=== PATIENT | male | born 1960 | race Caucasian/White ===

== ENCOUNTER 2022-04-29 22:38 | Emergency (ER) | payer OTHER ==
[2022-04-29 22:46] VITALS: TEMP 98.9
[2022-04-29] MEDS ORDERED: ONDANSETRON 4 MG/2 ML VIAL IVP STA (23:03)
[2022-04-29] MEDS ORDERED: MORPHINE SULFATE 4 MG/ML SYRINGE IV STA (23:03)
--- NOTE | 2022-04-29 23:38 | XR ---
EXAMINATION TYPE: XR lumbar spine 2 or 3V DATE OF EXAM: 04/29/2022 COMPARISON: NONE HISTORY: Back pain TECHNIQUE: 3 views FINDINGS: The lumbar vertebrae have normal alignment. Posterior elements are intact. No compression f racture. There is mild spurring of the endplates. There is vacuum disc at L4-5. Sacroiliac joints are intact. IMPRESSION: Spondylotic changes. No fracture.
--- NOTE | 2022-04-29 23:39 | ED ---
Fall HPI - General Chief Complaint: Fall Stated Complaint: Fall, LT hip pain Time Seen by Provider: 04/29/22 22:50 Source: EMS Mode of arrival: EMS - History of Present Illness Initial Comments: Patient states he tripped and fell and struck his left hip. Patient complaining of pain to the left hip and groin area. Patient states that this seems to affect the groin muscles on the inner aspect of his left thigh as well. This was a mechanical trip and fall. Patient denies any head or neck injury. Patient is not on blood thinners. Patient denies any distal paresthesias. No significant back pain. Patient states pain is sharp, exacerbated by movement. Patient states he is able to walk with pain. No headache, no fever or chills, no changes in vision or hearing, no sore throat or difficulty with speech, no neck pain, no chest pain or shortness of breath, no abdominal pain, no nausea or vomiting, no changes in urination or bowel movements, no numbness or tingling, no skin rashes or lesions. MD Complaint: fall - Related Data Previous Rx's Medication Instructions Recorded Cyclobenzaprine [Flexeril] 10 mg PO TID PRN #20 tab 04/30/22 Naproxen [Naprosyn] 375 mg PO Q12HR PRN #20 tablet 04/30/22 Allergies Allergy/AdvReac Type Severity Reaction Status Date / Time hydroxyzine [From Vistaril] AdvReac Rash/Hives Verified 04/30/22 00:26 Review of Systems ROS Statement: Those systems with pertinent positive or pertinent negative responses have been documented in the HPI. ROS Other: All systems not noted in ROS Statement are negative. Past Medical History Past Medical History: Neurologic Disorder History of Any Multi-Drug Resistant Organisms: None Reported Past Surgical History: Appendectomy, Back Surgery Additional Past Surgical History / Comment(s): colon repair Past Psychological History: No Psychological Hx Reported Smoking Status: Current every day smoker Past Alcohol Use History: None Reported Past Drug Use History: Marijuana General Exam Limitations: no limitations General appearance: alert, in distress Head exam: Present: atraumatic, normocephalic, normal inspection Eye exam: Present: normal appearance, PERRL, EOMI. Absent: scleral icterus, conjunctival injection, periorbital swelling ENT exam: Present: normal exam, normal oropharynx, mucous membranes moist, normal external ear exam. Absent: mucous membranes dry Neck exam: Present: normal inspection, full ROM. Absent: tenderness, meningismus, lymphadenopathy Respiratory exam: Present: normal lung sounds bilaterally. Absent: respiratory distress, wheezes, rales, rhonchi, stridor, chest wall tenderness, accessory muscle use, decreased breath sounds, prolonged expiratory Cardiovascular Exam: Present: regular rate, normal rhythm, normal heart sounds. Absent: systolic murmur, diastolic murmur, rubs, gallop, clicks GI/Abdominal exam: Present: soft, normal bowel sounds. Absent: distended, tenderness, guarding, rebound, rigid Extremities exam: Present: normal inspection, tenderness (Patient has some tenderness to the left groin muscle area. There is no specific bony point tenderness. No external rotation. No shortening. This sensation intact. Skin intact. Pelvis is stable), normal capillary refill. Absent: full ROM, pedal edema, joint swelling, calf tenderness Back exam: Present: normal inspection, tenderness (Mild tenderness left lumbar paraspinals. No midline tenderness.), paraspinal tenderness. Absent: full ROM (Somewhat limited by pain), muscle spasm, vertebral tenderness, rash noted Neurological exam: Present: alert, oriented X3, CN II-XII intact. Absent: altered, motor sensory deficit Expanded Patient oriented to: Present: person, place, time Speech: Present: fluid speech Cranial nerves: EOM's Intact: Normal, Gag Reflex: Normal, Tongue Deviation: Normal, Nystagmus: Normal, Facial Sensation: Normal, Facial Palsy with Forehead Movement: Normal, Facial Palsy without Forehead Movement: Normal Cerebellar function: Finger to Nose: Normal, Heel to Canela: Normal Upper motor neuron: Joshua Neglect: Normal, Pronator Drift: Normal, Sensory Extinction: Normal Sensory exam: Upper Extremity Light Touch: Normal, Lower Extremity Light Touch: Normal Motor strength exam: RUE: 5, LUE: 5, RLE: 5 Eye Response: (4) open spontaneously Motor Response: (6) obeys commands Verbal Response: (5) oriented Psychiatric exam: Present: normal affect, normal mood Skin exam: Present: warm, dry, intact, normal color. Absent: rash Course Vital Signs 04/29/22 04/30/22 22:39 00:49 Temperature 98.9 F Pulse Rate 105 H 86 Respiratory 20 18 Rate Blood Pressure 153/108 164/95 O2 Sat by Pulse 99 99 Oximetry Medical Decision Making - Medical Decision Making Presentation most consistent with a groin strain. Pain medication given. Plain x-rays done. Patient states he usually takes Jupiter at home but did not take it today. Patient was told to return to the ER for any signs or symptoms worsen. Told to return immediately if any other problems arise. All questions answered. Treatment plan discussed. Patient in agreement Every effort has been made to ensure accuracy of this dictation. However, due to the limitations of electronic medical records and dictation devices, errors in charting still occur. Deliverer Food Dr. Tran Disposition Clinical Impression: Groin strain, Hypertension, poor control Disposition: HOME SELF-CARE Instructions (If sedation given, give patient instructions): Fall Prevention for Older Adults (ED), Groin Strain (ED) Additional Instructions: Follow-up with your regular physician as directed. Return to the ER immediately if any symptoms worsen, new symptoms arise, or any other problems develop. Take your home pain medication as directed. Prescriptions: Cyclobenzaprine [Flexeril] 10 mg PO TID PRN #20 tab PRN Reason: Spasms Naproxen [Naprosyn] 375 mg PO Q12HR PRN #20 tablet PRN Reason: Pain Is patient prescribed a controlled substance at d/c from ED?: No Referrals: Nonstaff,Physician [Primary Care Provider] - 1-2 days Time of Disposition: 00:33
--- NOTE | 2022-04-29 23:39 | XR ---
EXAMINATION TYPE: XR Hip LT and AP Pelvis DATE OF EXAM: 04/29/2022 COMPARISON: NONE HISTORY: Hip pain TECHNIQUE: 3 views FINDINGS: The pelvic ring is intact. Proximal left femur and hip joint appear intact. Sacroiliac join t is intact. IMPRESSION: Normal left hip exam.
[2022-04-30] MEDS ORDERED: KETOROLAC 15 MG/ML 1 ML VIAL IVP STA (00:11)
[2022-04-30] MEDS ORDERED: ORPHENADRINE 30 MG/ML 2 ML VIAL IVP STA (00:13)
[2022-04-30 00:51] VITALS: BP 164/95; PULSE 86; RESP 18
== END 2022-04-30 00:51 | disposition home or self-care (01) ==
LOC: EC 22:38
DX: S39.011A Strain of muscle, fascia and tendon of abdomen, initial encounter (principal); I10 Essential (primary) hypertension; F17.200 Nicotine dependence, unspecified, uncomplicated; F12.90 Cannabis use, unspecified, uncomplicated; W01.0XXA Fall on same level from slipping, tripping and stumbling without subsequent striking against object, initial encounter
CPT/HCPCS: 72100; 73502; 99283; 96374; 96375 ×3; J2270; J2360; J2405; J1885

== ENCOUNTER 2022-06-29 18:16 | Emergency (ER) | payer OTHER ==
[2022-06-29 18:47] VITALS: BP 137/96; PULSE 85; RESP 16; TEMP 97.8
[2022-06-29] MEDS ORDERED: KETOROLAC 15 MG/ML 1 ML VIAL IM STA (20:28)
--- NOTE | 2022-06-29 20:33 | ED ---
Fall HPI - General Chief Complaint: Fall Stated Complaint: FALL Time Seen by Provider: 06/29/22 19:59 Source: patient Mode of arrival: ambulatory - History of Present Illness Initial Comments: 61-year-old male patient presents to the emergency room via his own wheelchair with complaints of falling backwards trying to help a friend at the doctor's office today landing on his buttocks and lower back. Patient states he continues to have low back pain. He has had a history of back surgery. He denies any bowel or bladder incontinence. He states that he is in a wheelchair due to altered gait that is chronic. States that his pain is 10 out of 10. He denies any bowel or bladder incontinence. MD Complaint: fall -: hour(s) (4) Fall From: wheelchair When Fall Occurred: 4-6 hours [employer] Fall Witnessed: no Place Fall Occurred: other (Dr. Che's office) Loss of Consciousness: none Prolonged Down Time?: no Symptoms Prior to Fall: none Severity scale (1-10): 10 Quality: sharp Associated Symptoms: denies - Related Data Previous Rx's Medication Instructions Recorded Cyclobenzaprine [Flexeril] 10 mg PO TID PRN #20 tab 04/30/22 Naproxen [Naprosyn] 375 mg PO Q12HR PRN #20 tablet 04/30/22 Lidocaine 5% Patch [Lidoderm] 1 patch TOPICAL DAILY PRN 14 Days 06/29/22 #14 patch Allergies Allergy/AdvReac Type Severity Reaction Status Date / Time hydroxyzine [From Vistaril] AdvReac Rash/Hives Verified 06/29/22 18:47 Review of Systems ROS Statement: Those systems with pertinent positive or pertinent negative responses have been documented in the HPI. ROS Other: All systems not noted in ROS Statement are negative. Past Medical History Past Medical History: Neurologic Disorder History of Any Multi-Drug Resistant Organisms: None Reported Past Surgical History: Appendectomy, Back Surgery Additional Past Surgical History / Comment(s): colon repair Past Psychological History: No Psychological Hx Reported Smoking Status: Current every day smoker Past Alcohol Use History: None Reported Past Drug Use History: Marijuana General Exam Limitations: no limitations General appearance: alert, in no apparent distress Head exam: Present: atraumatic Eye exam: Absent: scleral icterus, conjunctival injection, periorbital swelling Respiratory exam: Present: normal lung sounds bilaterally. Absent: respiratory distress, accessory muscle use Cardiovascular Exam: Present: regular rate Extremities exam: Present: normal capillary refill. Absent: pedal edema, calf tenderness Back exam: Present: normal inspection, tenderness, paraspinal tenderness, vertebral tenderness (Lumbar sacral spine), other (LS spine surgical scar). Absent: CVA tenderness (R), CVA tenderness (L), rash noted Neurological exam: Present: alert, oriented X3. Absent: normal gait Psychiatric exam: Present: normal affect, normal mood Skin exam: Present: warm, dry, normal color. Absent: cyanosis, diaphoretic, petechiae, pallor Course Vital Signs 06/29/22 18:45 Temperature 97.8 F Pulse Rate 85 Respiratory 16 Rate Blood Pressure 137/96 O2 Sat by Pulse 100 Oximetry Medical Decision Making - Medical Decision Making X-rays are negative for acute fracture. Patient was given Lidoderm patch and shot of Toradol. He is requesting something stronger for pain. I did encourage him to use Tylenol and Motrin along with the Lidoderm patches as prescribed. Follow-up with his primary care doctor as this is likely a contusion combined with chronic low back pain. There is no evidence of bruising to his LS-spine. Patient does have an altered gait at baseline which is why he is in a wheelchair. Case discussed with Dr. Magallanes. Disposition Clinical Impression: Fall, Low back pain Disposition: HOME SELF-CARE Condition: Good Instructions (If sedation given, give patient instructions): Acute Low Back Pain (ED) Additional Instructions: Take Tylenol and or Motrin as needed for pain. You can also use Lidoderm patches in addition for pain relief. Follow-up with your primary care doctor next week. Return to the emergency room with any new or concerning symptoms including increased pain, incontinence of bowel or bladder. Prescriptions: Lidocaine 5% Patch [Lidoderm] 1 patch TOPICAL DAILY PRN 14 Days #14 patch PRN Reason: Pain Is patient prescribed a controlled substance at d/c from ED?: No Referrals: Jovani Rivera MD [Primary Care Provider] - 1-2 days Time of Disposition: 21:17
--- NOTE | 2022-06-29 20:51 | XR ---
Result: History: Back pain status post fall. Comparison: 04/29/2022. Technique: 3 views of the lumbar spine. Findings: The bone mineralization is normal. Images of the lumbar spine demonstrate 5 lumbar-type vertebrae. There is no acute fracture or sublux ation. The vertebral body heights are preserved. There is slight levoconvex curvature of the lumbar spine. There is demonstration of moderate to severe disc narrowing and facet arthropathy at L4-5. Ot herwise mild to moderate elsewhere. Impression: Degenerative changes without acute osseous abnormality.
[2022-06-29] MEDS ORDERED: LIDOCAINE 5% PATCH TOPICAL SCH (21:15)
== END 2022-06-29 21:51 | disposition home or self-care (01) ==
LOC: EC 18:16
DX: M54.50 Low back pain, unspecified (principal); F17.200 Nicotine dependence, unspecified, uncomplicated; F12.90 Cannabis use, unspecified, uncomplicated; Z88.6 Allergy status to analgesic agent; W18.30XA Fall on same level, unspecified, initial encounter
CPT/HCPCS: 72100; 99284; 96372; J1885

== ENCOUNTER 2022-09-19 16:02 | Emergency (ER) | payer OTHER ==
[2022-09-19 17:46] LABS: Basophils % (A) 0 %; Eosinophils # (A) 0.1 k/uL (0-0.7); Eosinophils % (A) 2 %; HCT 43.6 % (39.0-53.0); HGB 14.6 gm/dL (13.0-17.5); Lymphocytes # (A) 1.5 k/uL (1.0-4.8); Lymphocytes % (A) 20 %; MCH 33.3 pg (25.0-35.0); MCHC 33.4 g/dL (31.0-37.0); MCV 99.8 fL (80.0-100.0); Mean Platelet Volume 7.6; Monocytes # (A) 0.5 k/uL (0-1.0); Monocytes % (A) 7 %; Neutrophils % (A) 68 %; Platelet Count 337 k/uL (150-450); RBC 4.37 m/uL (4.30-5.90); RDW 12.8 % (11.5-15.5); WBC 7.3 k/uL (3.8-10.6)
[2022-09-19 17:54] LABS: ALT 18 U/L (4-49); AST 16 U/L (17-59); African American GFR (CKD) >90 (>60 ml/min/1.73 sqM); Albumin 4.1 g/dL (3.5-5.0); Alkaline Phosphatase 94 U/L (38-126); Anion Gap 11 mmol/L; Blood Urea Nitrogen 16 mg/dL (9-20); Carbon Dioxide 23 mmol/L (22-30); Chloride 104 mmol/L (98-107); Glucose 82 mg/dL (74-99); Non-African American GFR(CKD) >90 (>60 ml/min/1.73 sqM); Potassium 4.4 mmol/L (3.5-5.1); Sodium 138 mmol/L (137-145); Total Bilirubin 0.2 mg/dL (0.2-1.3); Total Protein 6.8 g/dL (6.3-8.2)
--- NOTE | 2022-09-19 18:43 | XR ---
EXAMINATION TYPE: XR chest 2V DATE OF EXAM: 09/19/2022 5:47 PM COMPARISON: none TECHNIQUE: XR chest 2V Frontal and lateral views of the chest. CLINICAL INDICATION:Male, 61 years old with history of cough; FINDINGS: Lungs/Pleura: Scattered subtle reticular and hazy opacities. No evidence of pneumothorax, focal conso lidation or pleural effusion. Pulmonary vascularity: Unremarkable. Heart/mediastinum: Cardiomediastinal silhouette is unremarkable. Musculoskeletal: No acute osseous pathology. IMPRESSION: Subtle scattered opacities which may represent an atypical pneumonia. Correlate for covid 19.
--- NOTE | 2022-09-19 19:18 | ED ---
General Adult HPI - General Chief complaint: Recheck/Abnormal Lab/Rx Stated complaint: fever, chest pain, headache-post covid vaccine Time Seen by Provider: 09/19/22 18:17 Source: patient Mode of arrival: ambulatory Limitations: no limitations - History of Present Illness Initial comments: Dictation was produced using [employer] dictation software. please excuse any grammatical, word or spelling errors. Chief Complaint: 61-year-old male presents emergency department for fever History of Present Illness: 61-year-old male who presents emergency department for fever. Patient has history of debility secondary to multiple sclerosis. P atient ambulates via motorized wheelchair. Patient states that he got his: Vaccine at [facility] 5 days ago. Since that he's been having fevers. Patient complains of sharp chest Worse with deep inspiration. Nonradiating. Patient denies any shortness of breath. The ROS documented in this emergency department record has been reviewed and confirmed by me. Those systems with pertinent positive or negative responses have been documented in the HPI. All other systems are other negative and/or noncontributory. PHYSICAL EXAM: General Impression: Alert and oriented x3, not in acute distress HEENT: Normocephalic atraumatic, extra-ocular movements intact, pupils equal and reactive to light bilaterally, mucous membranes moist. Cardiovascular: Heart regular rate and rhythm Chest: Able to complete full sentences, no retractions, no tachypnea Musculoskeletal: no peripheral edema Motor: no focal deficits noted Neurological: CN II-XII grossly intact, no focal motor or sensory deficits noted Skin: Intact with no visualized rashes Psych: Normal affect and mood ED course: 61-year-old male presents emergency department for fever. Patient states that her symptoms began after getting a cold vaccine. As upon arrival are within acceptable limits. Patient is afebrile. Chest x-ray shows Subtle scattered opacities which may represent atypical pneumonia or COVID-19. Laboratory evaluation obtained. CBC, metabolic panel is unremarkable. Abdominal labs negative. Troponin is normal. COVID-19 test is negative. Patient reevaluated at bedside 8:30 PM found to be in stable medical condition. Patient's well-appearing. Patient given dose of Zithromax. There is concern of atypical pneumonia. Patient be discharged with prescription for Zithromax pack. Advised follow-up with primary care doctor. EKG interpretation: Ventricular rate 88, sinus rhythm,. Interval 164, Q's 85, QTC 373. No NE prolongation, no QTC prolongation, no ST or T-wave changes noted. Overall, this EKG is unremarkable - Related Data Previous Rx's Medication Instructions Recorded Cyclobenzaprine [Flexeril] 10 mg PO TID PRN #20 tab 04/30/22 Naproxen [Naprosyn] 375 mg PO Q12HR PRN #20 tablet 04/30/22 Lidocaine 5% Patch [Lidoderm] 1 patch TOPICAL DAILY PRN 14 Days 06/29/22 #14 patch Azithromycin [Zithromax Z Pack] 1 tab PO DIRECTED #6 tab 09/19/22 Allergies Allergy/AdvReac Type Severity Reaction Status Date / Time hydroxyzine [From Vistaril] AdvReac Rash/Hives Verified 09/19/22 17:16 Review of Systems ROS Statement: Those systems with pertinent positive or pertinent negative responses have been documented in the HPI. ROS Other: All systems not noted in ROS Statement are negative. Past Medical History Past Medical History: Neurologic Disorder Additional Past Medical History / Comment(s): MS History of Any Multi-Drug Resistant Organisms: None Reported Past Surgical History: Appendectomy, Back Surgery Additional Past Surgical History / Comment(s): colon repair Past Psychological History: No Psychological Hx Reported Smoking Status: Current every day smoker Past Alcohol Use History: None Reported Past Drug Use History: Marijuana General Exam Limitations: no limitations Course Vital Signs 09/19/22 09/19/22 09/19/22 17:12 17:59 19:17 Temperature 98.4 F 98.3 F Pulse Rate 60 88 Pulse Rate [ 86 Surgical Aide ] Respiratory 22 18 Rate Blood Pressure 109/70 147/101 O2 Sat by Pulse 96 98 Oximetry 09/19/22 20:16 Temperature 98.2 F Pulse Rate 85 Pulse Rate [ Surgical Aide ] Respiratory 16 Rate Blood Pressure 143/96 O2 Sat by Pulse 99 Oximetry Medical Decision Making - Lab Data Result diagrams: 09/19/22 17:35 09/19/22 17:35 Lab Results 09/19/22 09/19/22 09/19/22 Range/Units 17:35 17:35 17:35 WBC 7.3 (3.8-10.6) k/uL RBC 4.37 (4.30-5.90) m/uL Hgb 14.6 (13.0-17.5) gm/dL Hct 43.6 (39.0-53.0) % MCV 99.8 (80.0-100.0) fL MCH 33.3 (25.0-35.0) pg MCHC 33.4 (31.0-37.0) g/dL RDW 12.8 (11.5-15.5) % Plt Count 337 (150-450) k/uL MPV 7.6 Neutrophils % 68 % Lymphocytes % 20 % Monocytes % 7 % Eosinophils % 2 % Basophils % 0 % Neutrophils # 5.0 (1.3-7.7) k/uL Lymphocytes # 1.5 (1.0-4.8) k/uL Monocytes # 0.5 (0-1.0) k/uL Eosinophils # 0.1 (0-0.7) k/uL Basophils # 0.0 (0-0.2) k/uL Sodium 138 (137-145) mmol/L Potassium 4.4 (3.5-5.1) mmol/L Chloride 104 (98-107) mmol/L Carbon Dioxide 23 (22-30) mmol/L Anion Gap 11 mmol/L BUN 16 (9-20) mg/dL Creatinine 0.66 (0.66-1.25) mg/dL Est GFR (CKD-EPI)AfAm >90 (>60 ml/min/1.73 sqM) Est GFR (CKD-EPI)NonAf >90 (>60 ml/min/1.73 sqM) Glucose 82 (74-99) mg/dL Calcium 9.0 (8.4-10.2) mg/dL Total Bilirubin 0.2 (0.2-1.3) mg/dL AST 16 L (17-59) U/L ALT 18 (4-49) U/L Alkaline Phosphatase 94 (38-126) U/L Troponin I <0.012 (0.000-0.034) ng/mL Total Protein 6.8 (6.3-8.2) g/dL Albumin 4.1 (3.5-5.0) g/dL Coronavirus (PCR) (Not Detectd) 09/19/22 Range/Units 19:15 WBC (3.8-10.6) k/uL RBC (4.30-5.90) m/uL Hgb (13.0-17.5) gm/dL Hct (39.0-53.0) % MCV (80.0-100.0) fL MCH (25.0-35.0) pg MCHC (31.0-37.0) g/dL RDW (11.5-15.5) % Plt Count (150-450) k/uL MPV Neutrophils % % Lymphocytes % % Monocytes % % Eosinophils % % Basophils % % Neutrophils # (1.3-7.7) k/uL Lymphocytes # (1.0-4.8) k/uL Monocytes # (0-1.0) k/uL Eosinophils # (0-0.7) k/uL Basophils # (0-0.2) k/uL Sodium (137-145) mmol/L Potassium (3.5-5.1) mmol/L Chloride (98-107) mmol/L Carbon Dioxide (22-30) mmol/L Anion Gap mmol/L BUN (9-20) mg/dL Creatinine (0.66-1.25) mg/dL Est GFR (CKD-EPI)AfAm (>60 ml/min/1.73 sqM) Est GFR (CKD-EPI)NonAf (>60 ml/min/1.73 sqM) Glucose (74-99) mg/dL Calcium (8.4-10.2) mg/dL Total Bilirubin (0.2-1.3) mg/dL AST (17-59) U/L ALT (4-49) U/L Alkaline Phosphatase (38-126) U/L Troponin I (0.000-0.034) ng/mL Total Protein (6.3-8.2) g/dL Albumin (3.5-5.0) g/dL Coronavirus (PCR) Not Detected (Not Detectd) Disposition Clinical Impression: Atypical pneumonia Disposition: HOME SELF-CARE Condition: Good Instructions (If sedation given, give patient instructions): Community Acquired Pneumonia (ED) Prescriptions: Azithromycin [Zithromax Z Pack] 1 tab PO DIRECTED #6 tab Is patient prescribed a controlled substance at d/c from ED?: No Referrals: Jovani Rivera MD [Primary Care Provider] - 1-2 days Time of Disposition: 20:30
[2022-09-19] MEDS ORDERED: HYDROcodone/APAP 5-325MG 1 EACH TAB PO STA (20:10)
[2022-09-19] MEDS ORDERED: AZITHROMYCIN 500 MG TAB PO STA (20:10)
[2022-09-19 20:16] VITALS: BP 143/96
[2022-09-19] MEDS ORDERED: ACET/COD 300 MG/30 MG STARTER PACK 6 TAB BTL PO STA (20:30)
[2022-09-19 20:42] VITALS: PULSE 80; RESP 18; TEMP 97.8
== END 2022-09-19 20:43 | disposition home or self-care (01) ==
LOC: EC 16:02
DX: J18.9 Pneumonia, unspecified organism (principal); Z87.891 Personal history of nicotine dependence; F12.90 Cannabis use, unspecified, uncomplicated; Z88.6 Allergy status to analgesic agent; Z20.822 Contact with and (suspected) exposure to COVID-19
CPT/HCPCS: 36415; 71046; 80053; 84484; 85025; 87635; 93005; 99284